=== PATIENT | female | born 1975 | race Caucasian/White ===

== ENCOUNTER 2023-09-29 09:38 | Emergency (ER) | payer BC, SELFPAY ==
[2023-09-29 09:54] VITALS: BP 121/80
--- NOTE | 2023-09-29 11:05 | ED.GENMED ---
History of Present Illness
<Aixa Ellison PA-C - Last Filed: 09/29/23 12:19>
General
Chief Complaint: Musculo-Skeletal Complaint
Source: patient
Exam Limitations: none
Time Seen by Provider: 09/29/23 10:58
Nursing documentation reviewed up to this point in time: agreed with
Travel History
Have you had any contact with someone who has COVID-19?: No
Do you have any symptoms of coronavirus? Fever > 100 degrees, chills, cough, shortness of breath, sore throat, loss of taste or smell, muscle aches, or headache?: No
History of Present Illness
History of Present Illness:
Patient is a female no significant past medical history presenting for evaluation of right ankle injury. Patient states that she tripped on an outdoor step yesterday rolling her right ankle. She is now endorsing pain worse on the lateral aspect of
right ankle. Patient has been able to bear minimal weight on her right foot. She did apply ice and elevate foot last night. She took 600 mg of ibuprofen this morning. She denies sustaining any other injuries in the fall. Patient denies any
numbness/tingling right lower extremity.
Patient is scheduled for a cervical spinal fusion in a few weeks
Past History
<Aixa Ellison PA-C - Last Filed: 09/29/23 12:19>
Past History
ED Past Medical History: None
ED Past Surgical History: Orthopedic
Social History
Tobacco: Non-smoker
Alcohol: None
Drug: None
Personal:
Phy Exam
<Aixa Ellison PA-C - Last Filed: 09/29/23 12:19>
Physical Exam
Physical Exam:
General: No apparent distress, nontoxic appearing
Vitals: Vital signs stable, afebrile
HEENT: Atraumatic, normocephalic protecting airway
Neck: appears supple, trachea midline
CV: No evidence of cyanosis
Resp: No accessory muscle use
Abd: Non-distended
Extremities: Mild edema and tenderness along lateral malleolus without any obvious bruising or deformity, no tenderness at head of fibula, midfoot, lateral foot, base of fifth metatarsal, or medial malleolus; right lower extremity neurovascular
intact, DP pulses palpable and equal bilateral
Neuro: alert and oriented x 3; grossly intact
Psych: Normal affect
Skin: Edema of right lateral malleolus without any obvious deformity or bruising
Course
<Aixa Ellison PA-C - Last Filed: 09/29/23 12:19>
Orders/Labs/Results
Orders:
Orders
09/29/23 09:54
Ankle, Right 3 view CR [CR Ankle - Right Min 3 Views *] Urgent
Comment:
Reason For Exam: fall/pain
09/29/23 11:43
boot [Ortho Boot Right- Treatment] ONCE
Short or tall?: Tall
Vital Signs
Initial and Last Documented VS:
Initial Vital Signs
Temp Pulse Resp Pulse Ox
98.9 F 102 16 98
09/29/23 09:52 09/29/23 09:52 09/29/23 09:52 09/29/23 09:52
Last Documented Vital Signs
Temp Pulse Resp BP Pulse Ox
98.9 F 102 16 121/80 98
09/29/23 09:52 09/29/23 09:52 09/29/23 09:52 09/29/23 09:54 09/29/23 09:52
<Evangelista Perez DO - Last Filed: 09/29/23 11:54>
Orders/Labs/Results
Orders:
Orders
09/29/23 09:54
Ankle, Right 3 view CR [CR Ankle - Right Min 3 Views *] Urgent
Comment:
Reason For Exam: fall/pain
09/29/23 11:43
boot [Ortho Boot Right- Treatment] ONCE
Short or tall?: Tall
Vital Signs
Initial and Last Documented VS:
Initial Vital Signs
Temp Pulse Resp Pulse Ox
98.9 F 102 16 98
09/29/23 09:52 09/29/23 09:52 09/29/23 09:52 09/29/23 09:52
Last Documented Vital Signs
Temp Pulse Resp BP Pulse Ox
98.9 F 102 16 121/80 98
09/29/23 09:52 09/29/23 09:52 09/29/23 09:52 09/29/23 09:54 09/29/23 09:52
<Aixa Ellison PA-C - Last Filed: 09/29/23 12:19>
MDM/Problems Addressed
Differential Diagnosis Includes:
Not limited to: Ankle sprain, ankle contusion, ankle fracture, joint effusion
MDM/Problems Addressed:
Patient is a 48-year-old female presenting following mechanical fall with right ankle pain and swelling. Vitals are stable. Physical exam as above. Mild edema and tenderness around right lateral malleolus. Right lower extremity neurovascular
intact. X-ray negative for any acute fracture or dislocation. Will treat as ankle sprain with Ortho boot, RICE, NSAIDs as needed. Ortho follow-up as needed. Patient comfortable with plan. All questions answered.
Chronic conditions affecting care:
N/A
Acute Exacerbation and/or Progression of Chronic Illness:
N/A
<Aixa Ellison PA-C - Last Filed: 09/29/23 12:19>
*Radiology
Radiology exam reviewed: preliminary read by ED provider and radiology read reviewed
*Pulse Oximetry
Patient hypoxic: no
*Eye Technician Interpretation
Rate: Eye Technician- N/A
*Critical Care Note
Total Time (30-74mins, 75-104mins- exclusive of procedures): Not Applicable
ED Attending Note
<Aixa Ellison PA-C - Last Filed: 09/29/23 12:19>
-
Portions of this chart may have been created with voice recognition software.� Occasional wrong word or��sound alike� substitutions may have occurred due to the inherent limitations of voice recognition software.
<Evangelista Perez DO - Last Filed: 09/29/23 11:54>
ED Attending Note
Patient seen and examined by attending physician: Yes
I performed the substantive portion of visit, reviewed & personally made and approve the management plan that is documented in note by myself or ISAIAS.: Yes
ED Attending Note:
I have seen and evaluated the patient with a [id number] encounter. I have spoken to the advance practicer provider and involved in the medical history, the physical exam, medical decision making.
Evaluation and management service: agree unless noted differently below.
Results interpretation: agree unless noted differently below.
Focused HPI: 48-year-old female presenting with right ankle pain. Patient missed stepped as she was going down the steps earlier today. She complains of right lateral ankle pain. Denies numbness or tingling
Physical exam: Tenderness to right lateral malleolus. Mild edema noted. Sensation and pulses intact. Joint appears stable
Medical Decision Making: X-ray negative for fracture. We discussed sprain follow-up with orthopedics.
Discharge Plan
Departure
Patient Disposition: Home (Routine Discharge)
Date of Disposition: 09/29/23
Time of Disposition: 11:44
Patient with high blood pressure during this ER visit?: No
Condition: Good
Covid-19: Not Applicable
Discharge Problem:
Right ankle sprain
Instructions: Ankle Sprain (DC)
Prescriptions:
No Action
alprazolam 0.5 MG tablet
0.5 mg PO DAILY
sertraline 50 MG tablet
50 mg PO DAILY
Referrals:
Ritting,Yefri, MD [Active] - As needed
Rick Guillory DO [Family Provider] -
Activity Restrictions/Additional Instructions:
- Return to the emergency department with any severe pain, severe swelling, numbness/tingling in right lower extremity, high fevers, worsening in current symptoms, or any other concerns
-You can take Tylenol/Motrin as needed for discomfort. Apply ice and elevate as often as possible. Wear boot while ambulating until healed
-Follow-up with orthopedics if symptoms persist/worsen
Interventions
Interventions:
*Risk Screen - Suicide Last Done: 09/29/23 09:52
*General Assessment Last Done: 09/29/23 09:52
*Neglect/Abuse Screening Last Done: 09/29/23 09:52
ED-Musculoskeletal Assessment Last Done: 09/29/23 12:14
Discharge Date and Time
Print Language: CITIZEN [place]
== END 2023-09-29 12:17 | disposition home or self-care (01) ==
LOC: EMR 09:38
PROVIDERS: EMERGENCY PHYSICIAN Student in an Organized Health Care Education/Training Program; FAMILY PHYSICIAN Family Medicine
DX: S93.401A Sprain of unspecified ligament of right ankle, initial encounter (principal); W01.0XXA Fall on same level from slipping, tripping and stumbling without subsequent striking against object, initial encounter
CPT/HCPCS: 99283; 73610

== ENCOUNTER → 2023-11-26 13:23 | Outpatient (REF) | payer BC, SELFPAY | LOC: RAD 13:23 | PROVIDERS: ATTENDING PHYSICIAN Nurse Practitioner Adult Health; FAMILY PHYSICIAN Family Medicine | DX: M54.2 Cervicalgia (principal); M54.12 Radiculopathy, cervical region | CPT/HCPCS: 72040 ==